=== PATIENT | female | born 1970 | race Caucasian/White ===

== ENCOUNTER 2018-09-16 08:05 | Emergency (ER) | payer OTHER, MEDICAID ==
[2018-09-16] MEDS: IBUPROFEN 800 MG TAB PO (09:04)
== END 2018-09-16 09:51 | disposition home or self-care (01) ==
LOC: FTE 08:05
DX: S49.91XA Unspecified injury of right shoulder and upper arm, initial encounter (principal); F17.210 Nicotine dependence, cigarettes, uncomplicated; W18.30XA Fall on same level, unspecified, initial encounter; Y92.9 Unspecified place or not applicable
CPT/HCPCS: 73030; 73030-RT; 99283-25